=== PATIENT | male | born 1945 | race Caucasian/White ===

== ENCOUNTER → 2018-11-15 07:29 | Outpatient (CLI) | payer OTHER, SELFPAY ==
--- NOTE | 2018-11-15 14:54 | PM.TREADMILL ---
Cardiac Stress Test Report Referral & Results Date Patient Seen: 11/15/18 Time Patient Seen: 14:30 Requesting provider: Jose Haas Indication: Pre-operative clearance Procedure Note: Today following both written and verbal informed consent the patient was exercised according to a standard Abel protocol patient went for a total of 5 minutes achieving a maximum heart rate of 104 maximum systolic blood pressure of 140. This is approximately 5 METs. Exercise was terminated at this point because of orthopedic pain and apparent beta-blockade. Converted this test into a walking Lexiscan. He had significant nausea prior to injection of contrast or Deborah material. The patient was placed on the treadmill at 1 mile an hour with no elevation and was then injected with the Deborah scan material. The Cardiolite was then immediately administered. The patient spent an additional 2-3 minutes on the treadmill before being returned to the [facility] in the supine position. The patient had a normal response to all infused materials. No chest pain or shortness of breath. [address] depression in inferior leads. Depression only resolved with nitroglycerin and greater than 8 minutes of rest. Impression: High probability for ischemia. Will await perfusion imaging. Recommend Cardiology consult for further workup. Please note: Actual ECG tracings can be found in the PACS system.
--- NOTE | 2018-11-15 18:04 | DI.NM.S_ITS ---
DATE OF SERVICE: 11/15/2018 PROCEDURE: Lexiscan perfusion study. INDICATIONS: Preop clearance. Patient has known history of bypass surgery and PCI. RADIOPHARMACEUTICAL: 24.8 mCi technetium-99m Myoview IV was injected at stress and 13.2 mCi technetium-99m Myoview IV was injected at rest. It was 1-day protocol. CARDIAC STRESS: Initially, patient attempted exercise stress test walking treadmill. He walked for about 4 minutes and 1 second and heart rate increase to 103 bpm only. He was on beta j luis; hence, exercise stress test got converted to Lexiscan stress test. Patient received IV Lexiscan as per standard protocol under the supervision of an attending staff. During exercise, there was normal blood pressure response. Resting blood pressure 124/70, peak blood pressure 140/82. Patient achieved 70% of target heart rate during exercise. Baseline EKG revealed sinus rhythm with sinus bradycardia, rate 46, with 0.5-to- [address] depression in inferior leads as well as lead V4 to V6 an asymmetrical T-wave inversion in septal leads. During exercise, I don't see any convincing significant new ischemic changes. There were artifacts. However, in recovery, there was up to 2.5-mm downsloping ST depression in inferior leads and lead V3 to V6 which persisted. Hence, patient received sublingual nitroglycerin and slowly those changes recovered to baseline. Patient had nausea prior to Lexiscan injections. As per the report, no symptoms of angina. RAW DATA: There is increased subdiaphragmatic activity. Gut shadow seen near the inferior border of the heart. GATED STUDY: Resting stress LV ejection fraction 70%, and stress LV ejection fraction 75%. I don't see any significant wall motion abnormalities. No transient ischemic dilatation. TID ratio is 0.72, which is within normal limits. Resting LV end-diastolic volume is 87 mL. Lung/heart ratio is 0.26, which is within normal limits. MYOCARDIAL PERFUSION SCAN: Stress supine, resting supine, and stress prone images were compared to each other. The resting supine images revealed small-to- moderate-sized mildly decreased perfusion inferior wall, moderately decreased perfusion of apex, distal anterior wall as well as distal anteroseptum. In stress supine images, similar defect seen as resting images except there was worsening of perfusion defect in the mid-septum area as well. During prone images, inferior wall defect got significantly improved. Patient remained to have moderately decreased perfusion of apex, distal anterior septum as well as mid-septum. CONCLUSION: This is an abnormal myocardial perfusion study consistent with predominant moderate sized infarction of apex, distal anteroseptum with mild reversible ischemia in the mid-septum. No significant ischemic burden. Resting left ventricular (LV) ejection fraction 70%. Stress LV ejection fraction 75%. No transient ischemic dilatation. Lung/heart ratio is 0.26, which is within normal limits. Patient has baseline upsloping, up to 0.5-mm ST depression in inferior leads and lead V4 to V6 which got more pronounced during recovery with Lexiscan, and patient was given nitroglycerin for that. As far as perfusion scan is concerned, I don't see significant ischemic burden, mostly fixed apical distal anterior septal defect. Overall, LV function is preserved; hence, this is not a high-risk perfusion study. Correlate clinically. Patient doesn't have clinically cardiovascular symptoms, congestive heart failure, or unstable anginal pattern, then treat medically. However, if there is unstable cardiovascular symptoms or accelerating angina, consider cardiology evaluation in anticipation of left heart catheterization. Bjorn Celis - GUANAKITO/aryan/ab doc#: [id number]/job#: [id number] dd: 11/15/2018 16:11:00 dt: 11/15/2018 17:45:00 DICTATING MD/COPIES TO: Melania Dalal MD; Jose Haas COPIES MNE: ARUN;
== END ==
PROVIDERS: Visit Provider Specialist
DX: I25.10 Atherosclerotic heart disease of native coronary artery without angina pectoris (principal); I25.2 Old myocardial infarction; Z95.1 Presence of aortocoronary bypass graft; Z95.5 Presence of coronary angioplasty implant and graft
CPT/HCPCS: 78452; 93016; 93017; 93018; A9502; J2785

== ENCOUNTER 2019-02-06 09:44 | Day surgery (SDC) | payer OTHER, SELFPAY ==
[2019-02-02 08:26] VITALS: BMI 32.5
[2019-02-06] VITALS (8 sets, daily range): BP systolic 130–164; BP diastolic 55–81; PULSE 40–52; RESP 10–20; TEMP 35.6–36.5; O2SAT 94–100; BMI 32.0
[2019-02-06] MEDS: LACTATED RINGERS 1,000 ML 42 ML IV (10:24)
--- NOTE | 2019-02-06 10:42 | PM.PREOP ---
Pre-operative Note Interval Note History & Physical reviewed/Exam performed by Physician: Yes Changes to H&P: No
--- NOTE | 2019-02-06 11:28 | SUR.OPER ---
Prone on padded OR bed, head in foam head support, gel chest rolls, gel pad under knees, pillow under lower legs, toes free of pressure, arms secured on padded arm boards at <90 degrees abduction. Safety belt at thigh.
[2019-02-06] MEDS: BUPIVACAINE 0.5% W/ EPI (PF) 10 ML VIAL INJ (11:34)
[2019-02-06] MEDS: DIBUCAINE 1% OINT 28 GM 1 APPLIC TOP (11:34)
--- NOTE | 2019-02-06 12:38 | PM.OP.1 ---
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 I could identify no chronic inflammatory process whatsoever Closure Type: non-primary Specimen(s): none sent Estimated Blood Loss (mL): 5 Blood products transfused: none Procedure in detail: The patient was taste chelsea-knife prone on the operating room table after undergoing general endotracheal anesthesia. He was prepped and draped in the usual fashion. Examination of his perianal tissues in buttock failed to reveal any inflammatory area whatsoever. Anoscope was inserted and circumferential exam undertaken. I could not identify any internal fistula. Did finger digital exam failed to reveal any induration either. Since the patient had identified the location for me preoperatively I made a small incision the intersphincteric groove and tried to identify a fistula that might not be apparent. Though I could probe toward the midline I could not identify any internal opening whatsoever. The incision was packed with gauze and dressing applied there was a small tag in the anterior area that I excised and cauterized the base. Otherwise everything was unremarkable. Complications: none Post-operative Condition: stable Disposition: PACU
== END 2019-02-06 13:10 | disposition home or self-care (01) ==
PROVIDERS: Visit Provider Specialist
PROC: (CPT 45990; principal; 2019-02-06 11:15)
DX: K64.4 Residual hemorrhoidal skin tags (principal)
CPT/HCPCS: 46275; 46220; J1100; J2405; J2704; J3010

== ENCOUNTER 2019-04-17 09:53 | Day surgery (SDC) | payer OTHER, SELFPAY ==
[2019-04-14 14:49] VITALS: BMI 32.5
[2019-04-17] VITALS (8 sets, daily range): BP systolic 107–126; BP diastolic 48–66; PULSE 43–58; RESP 12–17; TEMP 36.1–36.7; O2SAT 96–100; BMI 31.7
--- NOTE | 2019-04-17 11:29 | PM.PREOP ---
Pre-operative Note Interval Note History & Physical reviewed/Exam performed by Physician: Yes Changes to H&P: No
[2019-04-17] MEDS: LACTATED RINGERS 1,000 ML 100 ML IV (11:36)
--- NOTE | 2019-04-17 13:51 | SUR.PHASEI ---
Dr. North spoke with pt, pt to return to office in am, pt voiced an understanding.
--- NOTE | 2019-04-17 13:52 | PM.OP.1 ---
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 I could not demonstrate any internal connection. Closure Type: not applicable Specimen(s): none sent Estimated Blood Loss (mL): 10 Blood products transfused: none Procedure in detail: The patient is placed chelsea-knife prone on the operating room table undergoing general endotracheal anesthesia. He was prepped and draped in the usual fashion. The sinus tract was identified preoperatively and intraoperatively. I attempted to cannulate it with a 22 gauge angiocath and inject Betadine to see if there was an internal opening initially I could not identify the path. Therefore I placed a small lacrimal probe which dropped from the location at about 10:00 a.m. inferiorly and angling toward the anus at about 7:00 a.m.. I opened along a portion of the path of the lacrimal probe and identified a chronic cavity that appeared to be lined with granulation tissue. I injected into it while placing a bivalve retractor in the anus and could not identify any internal opening. I gently probed the area and again could not identify anything that looked like an internal opening. I therefore inserted a finger and probed the cavity to make sure any loculations were broken down. I then used a curette to curette the ferrer. The wound was irrigated and packed with iodoform gauze. The patient was placed on his bed extubated and taken recovery area in good condition Complications: none Post-operative Condition: stable Disposition: PACU Plan for aftercare: Follow-up tomorrow to remove the packing
--- NOTE | 2019-04-17 14:20 | SUR.PHASEII ---
Awaiting d/c instructions from Dr. Haas. Pt with call light, prescription given to pharmacy for pt on discharge.
--- NOTE | 2019-04-17 14:22 | SUR.PHASEII ---
Denies pain, tolerating fluids.
[2019-04-17] MEDS: OXYCODONE/ACETAMINOPHEN 5/325 TABLET 1 TAB PO (15:07)
--- NOTE | 2019-04-17 15:17 | SUR.PHASEII ---
Pt c/o pain, medicated with percocet, 1 tab po.
--- NOTE | 2019-04-17 15:50 | SUR.PHASEII ---
Fresh 4x4 and abd pad placed to rectal area. Same supplies sent home with pt. Pt dressed. Sent to pharmacy for meds and [employer] taxi called for ride to [facility]. Pt's pain down to 3/10. Left unit when ready and left in stable condition.
== END 2019-04-17 16:10 | disposition home or self-care (01) ==
PROVIDERS: Referring Provider Specialist; Visit Provider Specialist
PROC: (CPT 45990; principal; 2019-04-17 11:45)
DX: K61.2 Anorectal abscess (principal)
CPT/HCPCS: 45999; J1100; J2405; J2704; J3010

== ENCOUNTER → 2020-08-08 15:28 | Outpatient (CLI) | payer OTHER, SELFPAY ==
[2020-08-08 16:02] LABS: COVID19 -Nasal RAPID Negative (Negative)
== END ==
PROVIDERS: Referring Provider Specialist; Visit Provider Specialist
DX: Z20.822 Contact with and (suspected) exposure to COVID-19 (principal)
CPT/HCPCS: 87635; C9803

== ENCOUNTER 2020-08-09 10:00 | Day surgery (SDC) | payer OTHER, SELFPAY ==
[2020-08-09] VITALS (7 sets, daily range): BP systolic 108–150; BP diastolic 50–71; PULSE 42–64; RESP 13–16; TEMP 36.1–36.6; O2SAT 97–100; BMI 201.7; BMI 31.2
--- NOTE | 2020-08-09 | PATH_ITS ---
[facility] Accession Number: [id number] . 01 Material submitted: . PART A: colon - COLON POLYP BIOPSY AT 45CM PART B: colon - COLON POLYP BIOPSY AT 70CM PART C: colon - TRANSVERSE COLON NEAR FLEXURE POLYP BIOPSY PART D: colon - COLON POLYP BIOPSY AT 80CM X2 . 02 Diagnosis: A. Colon, Polyp at 45 cm, Biopsy: Tubular adenoma. . B. Colon, Polyp at 70 cm, Biopsy: Tubular adenoma. . C. Transverse Colon Near Flexure, Polyp, Biopsy: Tubular adenoma. . D. Colon, Polyp at 80 cm x2, Biopsies: Tubular adenomas. [facility] 08/14/2020 1311 Local . 02 Electronically signed: . Marla Coffey MD, Pathologist NPI- [id number] . 01 Gross description: . Part A: COLON POLYP BIOPSY AT 45CM: Received in formalin are 2 fragment(s) of florez, soft tissue measuring 0.1 x 0.1 x 0.1 cm to 0.3 x 0.3 x 0.2 cm submitted entirely in 1 cassette(s) Part B: COLON POLYP BIOPSY AT 70CM: Received in formalin are 2 fragment(s) of florez, soft tissue measuring 0.4 x 0.4 x 0.4 cm to 0.6 x 0.6 x 0.5 cm submitted entirely in 1 cassette(s) Part C: TRANSVERSE COLON NEAR FLEXURE POLYP BIOPSY: Received in formalin are 2 fragment(s) of florez, soft tissue measuring 0.2 x 0.2 x 0.2 cm to 0.3 x 0.2 x 0.2 cm submitted entirely in 1 cassette(s) Part D: COLON POLYP BIOPSY AT 80CM X2: Received in formalin are 2 fragment(s) of florez, soft tissue measuring 0.2 x 0.2 x 0.2 cm to 0.3 x 0.3 x 0.3 cm submitted entirely in 1 cassette(s) /MAURICE 08/12/2020 1904 [facility] . 02 Pathologist provided ICD-10: D12.6, D12.3 . 02 CPT . 212263, [id number], [id number], [id number] Performed at: 01 [facility] [address] [place] [address], [place], [place] [id number] MD Jay Richmond MD Phone: [phone] Performed at: 02 [facility] [address] [place], [place] [id number] MD Marla Coffey MD Phone: [phone]
[2020-08-09] MEDS: LACTATED RINGERS 1,000 ML 200 ML IV (10:54)
--- NOTE | 2020-08-09 11:59 | PM.PREOP ---
Pre-operative Note COVID-19 COVID-19 status: Negative Result date/Date tested (Pos, Neg/Pending): 08/08/20 Interval Note History & Physical reviewed/Exam performed by Physician: Yes Changes to H&P: No ASA Class (for procedural sedation): III
[2020-08-09] MEDS: fentaNYL 250 MCG/5 ML INJ IV (12:00)
[2020-08-09] MEDS: MIDAZOLAM 5 MG/5 ML VIAL IV (12:00)
--- NOTE | 2020-08-09 12:35 | PM.OP.ENDO ---
Operative Date/Time/Diagnoses Date of procedure: 08/09/20 Time of procedure: 12:35 Pre-op diagnosis: Positive fit test. Patient long overdue for screening colonoscopy. Last exam may have been as long as 20 years ago Procedure & Clinicians Study performed: Colonoscopy with hot snare polypectomy and hot biopsy. Same procedure as scheduled: Yes Indications: Positive fit test. Screening Surgeon: Jose Haas Procedure Notes SCOAP/Timeout: Performed Procedure in detail: The patient was placed in the left lateral decubitus position and underwent IV sedation directed by the surgeon consisting of fentanyl and Versed. Digital exam was unremarkable. The scope was inserted and advanced through the rectum into the sigmoid, descending, transverse, and ascending colon. As I progressed and I biopsied a lesion at 45 cm and removed 3 small polyps with hot snare in the transverse colon. Another biopsy was performed 70 cm.. The cecum was reached identified by the ileocecal valve and the appendiceal opening. The ileocecal valve was successfully cannulated. The terminal ileum was normal in appearance. The scope was gradually brought out. Additional Polyps were found at 80 cm (removed with hot biopsy forceps) and the lesion initially biopsied at 45 cm was completely removed using hot biopsy forceps. The scope ultimately was retroflexed in the rectum. The appearance was normal. The scope was removed and the patient tolerated the procedure well. Scope withdrawal time: 6 minutes(9 total) Sedation minutes: 26 Findings: polyp (Multiple) Specimen(s): other (Polyps) Complications: none Post-procedure Recommendations: Colonscopy in 5 years Follow up: as needed Disposition: PACU
--- NOTE | 2020-08-09 13:03 | SUR.PHASEII ---
Maris Tabares spoke with Dr. Haas - states that patient may go home via taxi but to keep him longer than usual and be sure that he is very awake. Pt to [employer], awake, oriented and pleasant. [place] ordered.
--- NOTE | 2020-08-09 13:25 | SUR.PHASEII ---
Patient doing well, ate sandwich, reading discharge instructions. Gave a 'thumbs up' in response to how he is doing.
--- NOTE | 2020-08-09 13:42 | SUR.PHASEII ---
Patient dozing intermittently but aroused while being observed - states that he was 'just dozing a little.' States that he would like to rest for 15 more minutes and then feels ready to go. Very pleasant, satisfied with sandwich, declines more food. resp even and regular
--- NOTE | 2020-08-09 14:33 | SUR.PHASEII ---
Hand-off to Jose Alejandro Paredes RN. Patient sleeping, resp even and regular.
== END 2020-08-09 16:00 | disposition home or self-care (01) ==
PROVIDERS: Referring Provider Specialist; Visit Provider Specialist
PROC: 0DJD8ZZ Inspection of Lower Intestinal Tract, Via Natural or Artificial Opening Endoscopic (ICD-10-PCS; CPT 45378; principal; 2020-08-09 11:30)
DX: R19.5 Other fecal abnormalities (principal); I11.0 Hypertensive heart disease with heart failure; I50.42 Chronic combined systolic (congestive) and diastolic (congestive) heart failure; E11.9 Type 2 diabetes mellitus without complications; I25.2 Old myocardial infarction; D12.3 Benign neoplasm of transverse colon; D12.6 Benign neoplasm of colon, unspecified
CPT/HCPCS: 45385; 45384; 99152; J2250; J3010